=== PATIENT | male | born 1990 | race Caucasian/White ===

== ENCOUNTER 2019-12-14 22:51 | Emergency (ER) | payer OTHER | END 2019-12-14 23:11 | disposition other institution (70) | LOC: ED 22:51 | DX: Z02.89 Encounter for other administrative examinations (principal) ==

== ENCOUNTER 2019-12-14 22:51 | Emergency (ER) | payer SELFPAY ==
[~2019-12-14] VITALS: Ht 160 cm; Wt 59.0 kg
[2019-12-14 22:56] VITALS: Ht 160 cm; Wt 59.0 kg
[2019-12-14 23:45] VITALS: BP 130/76
== END 2019-12-14 23:11 | disposition other institution (70) ==
LOC: ED 22:51
DX: S00.81XA Abrasion of other part of head, initial encounter (principal); S80.212A Abrasion, left knee, initial encounter; S80.211A Abrasion, right knee, initial encounter; Y04.0XXA Assault by unarmed brawl or fight, initial encounter; Y93.89 Activity, other specified; Y92.89 Other specified places as the place of occurrence of the external cause; Y99.8 Other external cause status